=== PATIENT | female | born 1985 | race Two or more races ===

== ENCOUNTER 2019-12-14 08:46 | Emergency (ER) | payer OTHER ==
[2019-12-14 08:53] VITALS: BP 155/83; PULSE 83; TEMP 98.4; BMI 36.8
[2019-12-14] MEDS ORDERED: KETOROLAC TROMETHAMINE 30 MG/1 ML VIAL IM ONE (09:12)
[2019-12-14] MEDS ORDERED: KETOROLAC TROMETHAMINE 30 MG/1 ML VIAL ONE (09:19)
[2019-12-14] MEDS ORDERED: METHOCARBAMOL 500 MG TABLET ONE (09:19)
--- NOTE | 2019-12-14 09:20 | PDOC ---
History of Present Illness - General Chief Complaint: Back Pain Stated Complaint: BACK PAIN Time Seen by Provider: 12/14/19 09:08 History Source: Patient Exam Limitations: Clinical Condition - History of Present Illness Initial Comments: 12/14/19 09:14 Patient with no significant past medical history present with complaint of 4- day history of right lower and upper back pain status post using the gym 4 days ago and doing crunches. Patient reported increased pain to lower back and upper back when getting up from sitting position or laying position. Patient reports taking Aleve yesterday for pain with minimal improvement. Denies numbness or tingling sensation. Denies radiculopathy. Denies saddle paresthesia. Denies fecal or urinary incontinence Occurred: reports: other (4 days) Past History - Past Medical History Allergies/Adverse Reactions: Allergies Allergy/AdvReac Type Severity Reaction Status Date / Time No Known Allergies Allergy Verified 10/18/13 08:40 Home Medications: Ambulatory Orders Methocarbamol [Robaxin -] 500 mg PO BID PRN #20 tablet 12/14/19 Naproxen 500 mg PO BID PRN #14 tablet 12/14/19 Anemia: No Asthma: No Cancer: No Cardiac Disorders: No COPD: No CHF: No Diabetes: No GI Disorders: No Disorders: No HTN: No Hypercholesterolemia: No Liver Disease: No Seizures: No Thyroid Disease: No - Reproductive History (#): 2 Para: 1 Cervical CA: No Dysfunctional Uterine Bleeding: No Ectopic : No Endometrial CA: No Polycystic Ovaries: No Therapeutic (s) & number: No Tubal Ligation: No - Immunization History Immunization Up to Date: Yes - Psycho Social/Smoking Cessation Hx Smoking History: Never smoked Have you smoked in the past 12 months: No Information on smoking cessation initiated: No Hx Alcohol Use: No Drug/Substance Use Hx: No Substance Use Type: None Hx Substance Use Treatment: No Review of Systems - Review of Systems Able to Perform ROS?: Yes Is the patient limited Malaysian proficient: No Constitutional: No: Chills, Fever, Malaise, Weakness HEENTM: No: Symptoms Reported, See HPI, Eye Pain, Blurred Vision, Tearing, Recent change in vision, Double Vision, Cataracts, Ear Pain, Ocular Prothesis, Ear Discharge, Nose Pain, Nose Congestion, Tinnitus, Nose Bleeding, Hearing Loss , Throat Pain, Throat Swelling, Mouth Pain, Dental Problems, Difficulty Swallowing, Mouth Swelling, Other Respiratory: No: Symptoms reported, See HPI, Cough, Orthopnea, Shortness of Breath, SOB with Exertion, SOB at Rest, Stridor, Wheezing, Productive cough, Hemoptysis, Other Cardiac (ROS): No: Symptoms Reported, See HPI, Chest Pain, Edema, Irregular Heart Rate, Lightheadedness, Palpitations, Syncope, Chest Tightness, Other ABD/GI: No: Symptoms Reported, See HPI, Nausea, Vomiting : No: Burning, Dysuria, Discharge, Frequency, Flank Pain, Hematuria, Urgency Musculoskeletal: Yes: Symptoms Reported, See HPI, Back Pain, Muscle Pain (right lower and upper back pain) Integumentary: No: Symptoms Reported Neurological: No: Symptoms reported, Numbness, Paresthesia, Tingling All Other Systems: Reviewed and Negative *Physical Exam - Vital Signs Last Vital Signs Temp Pulse Resp BP Pulse Ox 98.4 F 83 18 155/83 99 12/14/19 08:50 12/14/19 08:50 12/14/19 08:50 12/14/19 08:50 12/14/19 08:50 - Physical Exam 12/14/19 09:21 GENERAL: Well developed, well nourished. Awake and alert in mild acute distress. PULMONARY: No evidence of respiratory distress. MUSCULOSKELETAL : mild tenderness over posterior paravertebral muscle of lumbosacral spine of L3-S1 on the right sides. Mild tenderness to right paravertebral muscle of posterior thoracic spinal T1-T3. No midline tenderness. no bony deformities EXTREMITIES: No cyanosis. No clubbing. No edema. No calf tenderness. SKIN: Warm and dry. Normal capillary refill. No rashes. No jaundice. NEUROLOGICAL: Alert, awake, appropriate. No motor deficits in the lower extremities. Gait is normal without ataxia. PSYCHIATRIC: Cooperative. Good eye contact. Appropriate mood and affect. General Appearance: Yes: Nourished, Appropriately Dressed, Mild Distress Medical Decision Making - Medical Decision Making 12/14/19 09:16 Patient with no significant past medical history present with complaint of 4- day history of right lower and upper back pain status post using the gym 4 days ago and doing crunches. Patient reported increased pain to lower back and upper back when getting up from sitting position or laying position. Patient reports taking Aleve yesterday for pain with minimal improvement. Denies numbness or tingling sensation. Denies radiculopathy. Denies saddle paresthesia. Denies fecal or urinary incontinence Exam significant for mild tenderness to right paravertebral muscle of lumbosacral spine of L4-S1 and posterior thoracic spine of T1-T3. No midline tenderness.. Patient symptoms likely musculoskeletal pain. Toradol 30 mg IM ordered for pain and Robaxin 500 mg ordered for spasm. Patient stable for discharge on naproxen twice daily for pain and Robaxin for spasm with advised to do hot compresses with orthopedics follow-up as needed Discharge - Discharge Information Problems reviewed: Yes Clinical Impression/Diagnosis: Lumbago without sciatica Qualifiers: Chronicity: acute Back pain laterality: right Qualified Code(s): M54.5 - Low back pain Condition: Improved Disposition: HOME - Admission No - Additional Discharge Information Prescriptions: Methocarbamol [Robaxin -] 500 mg PO BID PRN #20 tablet PRN Reason: Back Pain Naproxen 500 mg PO BID PRN #14 tablet PRN Reason: Back Pain - Follow up/Referral Referrals: Imtiaz Grant MD, [facility] [Staff Physician] - - Patient Discharge Instructions Patient Printed Discharge Instructions: DI for Low Back Pain Additional Instructions: Your symptoms likely caused by muscle spasm. Take prescribed medication as prescribed for pain and spasm. Apply hot compress to low back 2-3 times a day as needed for pain. Follow-up referred orthopedics if symptoms persist for more than 3 days - Post Discharge Activity
[2019-12-14] MEDS ORDERED: METHOCARBAMOL 500 MG TABLET PO SCH (10:00)
== END 2019-12-14 09:34 | disposition home or self-care (01) ==
LOC: JER 08:46
PROC: 3E0233Z Introduction of Anti-inflammatory into Muscle, Percutaneous Approach (ICD-10-PCS; principal; 2019-12-14)
DX: M54.5 Low back pain (principal); X50.0XXA Overexertion from strenuous movement or load, initial encounter; Y93.B9 Activity, other involving muscle strengthening exercises; Y92.39 Other specified sports and athletic area as the place of occurrence of the external cause; Y99.8 Other external cause status
CPT/HCPCS: 96372; 99282-25

== ENCOUNTER 2021-06-10 22:48 | Emergency (ER) | payer OTHER ==
[2021-06-10 22:55] VITALS: TEMP 98.1; BMI 36.8
[2021-06-11] MEDS ORDERED: ACETAMINOPHEN 325 MG TABLET (FP) PO ONE (00:14)
[2021-06-11] MEDS ORDERED: ACETAMINOPHEN 325 MG TABLET (FP) ONE (00:26)
[2021-06-11 00:30] LABS: BASO % 0.4 % (0-2.0); EOS % 3.1 % (0-4.5); HEMATOCRIT 36.4 % (32.4-45.2); LYMPH % 30.1 % (8-40); MCHC 32.9 g/dl (32.0-36.0); MEAN CELL VOLUME 78.8 fl (80-96); MEAN PLT VOLUME 8.9 fl (7.5-11.1); MONO % 7.5 % (3.8-10.2); NEUT % 58.9 % (42.8-82.8); PLATELET COUNT 256 10^3/uL (134-434); RBC 4.62 M/mm3 (3.60-5.2); RDW 14.7 % (11.6-15.6); WHITE BLOOD COUNT 6.6 K/mm3 (4.0-10.0)
[2021-06-11 00:52] LABS: CHLORIDE 109 mmol/L (98-107); SODIUM 139 mmol/L (136-145)
[2021-06-11 00:55] LABS: ALBUMIN 3.3 g/dl (3.4-5.0); ANION GAP 5 MMOL/L (8-16); BLOOD UREA NITROGEN 13.4 mg/dL (7-18); CALCIUM 8.3 mg/dL (8.5-10.1); CO2 25 mmol/L (21-32); GLUCOSE,RANDOM 91 mg/dL (74-106)
[2021-06-11 00:58] LABS: CREATININE 1.3 mg/dL (0.55-1.3); SGOT/AST 17 U/L (15-37); SGPT/ALT 26 U/L (13-61)
[2021-06-11 01:00] LABS: BILIRUBIN,TOTAL 0.2 mg/dL (0.2-1); TOT PROT 7.1 g/dl (6.4-8.2)
[2021-06-11 01:01] LABS: ALK PHOS 64 U/L (45-117)
[2021-06-11 04:17] VITALS: BP 132/76; PULSE 73
== END 2021-06-11 04:17 | disposition home or self-care (01) ==
LOC: JER 22:48
DX: R07.9 Chest pain, unspecified (principal)
CPT/HCPCS: 36415; 71046-TC-FY; 80053; 82550; 82553; 84484; 85025; 93005; 93010; 99284-25